=== PATIENT | male | born 2000 | race Two or more races ===

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

== ENCOUNTER 2022-03-10 21:11 | Emergency (ER) | payer MEDICAID, SELFPAY ==
--- NOTE | 2022-03-10 21:14 | ECG_ITS ---
Test Reason : CHEST PAIN Blood Pressure : / mmHG Vent. Rate : 118 BPM Atrial Rate : 118 BPM P-R Int : 182 ms QRS Dur : 086 ms QT Int : 306 ms P-R-T Axes : 049 071 023 degrees QTc Int : 428 ms Sinus tachycardia Nonspecific ST abnormality Abnormal ECG When compared with ECG of 13-OCT-2021 02:29, Nonspecific T wave abnormality now evident in Inferior leads Lateral leads Referred By: Generic ED Physician Electronically Signed By:AMANDEEP GALINDO MD
[2022-03-10 21:15] VITALS: BP 127/66; PULSE 129; RESP 17; TEMP 36.2; O2SAT 100; BMI 19.6
[2022-03-10 21:31] LABS: MANUAL DIFF FLAG NO
[2022-03-10 21:32] LABS: Basophils Percent Auto 0.2 % (0-2); Eosinophils Absolute Auto 0.1 X10*3/uL (0.0-0.4); Eosinophils Percent Auto 0.8 % (0-4); Hematocrit 35.2 % (42.0-52.0); Imm Gran Abs Auto 0.02 X10*3/uL (0.00-0.03); Imm Gran Pct Auto 0.3 % (0.0-0.4); Lymphocytes Absolute Auto 0.7 X10*3/uL (1.2-4.9); Lymphocytes Percent Auto 11.4 % (20-40); Mean Corpuscular HGB Conc 34.1 g/dl (31.0-36.0); Mean Corpuscular Hemoglobin 31.7 pg (27.0-33.0); Mean Corpuscular Volume 93.1 fL (80.0-98.0); Mean Platelet Volume 8.3 fL (9.4-12.4); Monocytes Absolute Auto 0.5 X10*3/uL (0.1-1.2); Monocytes Percent Auto 7.6 % (2-11); Neutrophils Percent Auto 79.7 % (45-73); Platelet Count 354 X10*3/uL (160-400); Red Blood Count 3.78 X10*6/uL (4.60-5.80); Red Cell Distribution Width 11.4 % (11.0-16.0); White Blood Count 6.3 X10*3/uL (4.8-10.8)
[2022-03-10 21:55] LABS: Troponin-I High Sensitivity < 3.5 ng/L (<3.5-35.0)
[2022-03-10 21:59] LABS: Alanine Aminotransferase 28 U/L (0-40); Albumin Level 4.2 g/dL (3.5-5.0); Alkaline Phosphatase 106 U/L (39-117); Anion Gap 21 (12-20); Aspartate Amino Transferase 20 U/L (5-37); Bilirubin Total 0.7 mg/dL (0.0-1.0); Blood Urea Nitrogen 9 mg/dL (9-16); Calcium 9.3 mg/dL (8.4-10.2); Carbon Dioxide 20 mmol/L (22-29); Chloride 100 mmol/L (96-108); Creatinine Clr Calc Pharmacy 141.7; Estimated Glomerular Filt Rate > 60; Glucose Random 86 mg/dL (60-115); Potassium 3.8 mmol/L (3.3-5.1); Sodium 137 mmol/L (135-145); Total Protein 8.4 g/dL (6.5-8.0)
[2022-03-10 22:31] LABS: Influenza A PCR NEGATIVE (Negative); Influenza B PCR NEGATIVE (Negative); Resp Syncy Virus RNA Qual PCR NEGATIVE (Negative); SARS COV2 PCR INHOUSE NEGATIVE (Negative)
== END 2022-03-11 00:53 | disposition left against medical advice (07) ==
PROVIDERS: Emergency Provider Emergency Medicine
DX: R07.89 Other chest pain (principal); Z79.899 Other long term (current) drug therapy; Z20.822 Contact with and (suspected) exposure to COVID-19
CPT/HCPCS: 0241U; 36415; 80053; 83735; 84484; 85025; 93005; 99283

== ENCOUNTER 2022-05-18 18:51 | Emergency (ER) | payer MEDICAID, SELFPAY ==
--- NOTE | ~2022-05-18 | CT_ITS ---
EXAMINATION: CT ANGIOGRAM OF THE CHEST WITH AND WITHOUT CONTRAST (CT PULMONARY ANGIOGRAM FOR PE) CLINICAL INFORMATION: Reason for Exam Hodgkin's lymphoma with shortness of breath COMPARISON: 07/04/2021. Chest radiograph from today. TECHNIQUE: Prior to contrast administration, noncontrast localization images were obtained. Subsequently, multidetector volumetric imaging was performed from the thoracic inlet to below the diaphragms following the administration of 65 mL Omnipaque 350 intravenous contrast. No contrast reaction reported Sagittal, coronal, and MIP oblique sagittal reformatted images were obtained on the CT workstation, uploaded to PACS, and reviewed. This CT examination was performed using dose optimization techniques as appropriate, variously including the following: *Automated exposure control *Adjustment of mA and/or kV according to patient size (this includes techniques or standardized protocols for targeted exams where dose is matched to indication/reason for exam; i.e. extremities or head) *Use of iterative reconstruction technique Total exam dose-length product 239 mGy-cm FINDINGS: QUALITY OF STUDY/CONTRAST BOLUS: Satisfactory. PULMONARY ARTERIES: No central or segmental pulmonary emboli. THORACIC AORTA: No aneurysm or dissection. LUNG: Central airways are patent. Minimal nodularity noted in the right mainstem bronchus. Large left pleural effusion. Significant compressive atelectasis involving the left lower lobe and a portion of the left upper lobe. There is nodularity along the left cardiac apex measuring 5.7 x 4 cm. Additional soft tissue density along the right superior mediastinum with multiple adjacent pulmonary nodules. For instance there is a right upper lobe 1.7 cm nodule on series 8 image 129. These nodules are new from prior. Irregular soft tissue density in the right middle lobe along the external margin as well . No pneumothorax. MEDIASTINUM: Normal heart size. No definite pericardial effusion. Extensive mediastinal lymphadenopathy. Bilateral hilar and peribronchial lymphadenopathy. For instance there is a left hilar 1.8 cm lymph node, series 6 image 21. The lymphadenopathy is increased from prior. Increased lymphadenopathy in the epicardial fat. For instance 1.1 cm short axis node on series 6 image 49. Bulky adenopathy along the course of the descending aorta. No evidence of septal bowing or right heart strain. CORONARY ARTERY CALCIFICATION: None visualized on this study. CHEST WALL/AXILLA: No axillary or internal mammary lymphadenopathy. OSSEOUS STRUCTURES: No acute or suspicious osseous abnormality. UPPER ABDOMEN: Rounded nodes in the upper abdomen seen in the left upper quadrant. These are increased from prior. No reflux of contrast into the hepatic veins to suggest elevated right heart pressures. CT/CT angio chest PE protocol IMPRESSION: 1. No pulmonary embolism. 2. Large left pleural effusion with significant compressive atelectasis of the left lung. 3. Extensive mediastinal, hilar, and upper abdominal lymphadenopathy, increased from prior. 4. Multiple pulmonary nodules are seen, new from prior. This is concerning for metastatic disease. VTE: negative
--- NOTE | ~2022-05-18 | XR_ITS ---
EXAMINATION: XR CHEST CLINICAL INFORMATION: Cough, shortness of breath. History of lymphoma on chemotherapy. COMPARISON: Chest x-ray 10/13/2021. CT chest 07/04/2021 TECHNIQUE: 2 views of the chest were obtained. FINDINGS: Dense consolidation of the mid lower left lung. New since prior study. Haziness in the peripheral left hemithorax probably due to pleural effusion as well. No midline shift. The right lung is normally aerated. No right-sided pleural effusion. Redemonstration of the widened superior mediastinum similar prior CT and chest x-ray. XR/XR chest 2V IMPRESSION: Dense consolidation of the mid and lower left lung. Probable left pleural effusion as well. CT chest would be helpful for further assessment.
--- NOTE | 2022-05-18 19:27 | ED_ITS ---
HPI - URI/Sore Throat General Chief Complaint: Dyspnea <Ioana Gao CNP - Last Filed: 05/18/22 19:49> Stated Complaint: sob,coughing,dark urine <Ioana Gao CNP - Last Filed: 05/18/22 19:49> Time Seen by Provider: 05/18/22 20:32 <Ioana Gao CNP - Last Filed: 05/18/22 19:49> Source: patient <Souleymane Ron MD - Last Filed: 05/19/22 01:35> Mode of arrival: ambulatory <Souleymane Ron MD - Last Filed: 05/19/22 01:35> Limitations: no limitations <Souleymane Ron MD - Last Filed: 05/19/22 01:35> History of Present Illness HPI Narrative: Patient history of Hodgkin's lymphoma seen at [facility] in 2020 received chemotherapy and radiation treatment was in remission lost follow-up do not see any oncologist in 2021 now comes here for cough and shortness of breath for last week with night sweats cough is mostly dry feel short of breath whenever he does any activities, feels same as when he was diagnosed with mediastinal mass in 10/16 . patient also complaining of dysuria and dark color urine for 1 week no abdominal pain no nausea no vomiting or diarrhea <Souleymane Ron MD - Last Filed: 05/19/22 01:35> Related Data Home Medications: Home Medications Medication Instructions Recorded Confirmed albuterol sulfate 90 mcg/actuation 2 puff inhalation QID PRN wheezing 10/30/20 10/30/20 aerosol inhaler (ProAir HFA) ondansetron HCl 8 mg tablet 1 tab PO Q8H PRN nausea/vomiting 10/30/20 10/30/20 quetiapine 25 mg tablet 2 tab PO BEDTIME 10/30/20 10/30/20 scopolamine base 1 mg over 3 days 1 patch topical Q3D PRN 10/30/20 10/30/20 transdermal patch (Transderm-Scop) nausea/vomiting sulfamethoxazole 800 1 tab PO BID 10/30/20 10/30/20 mg-trimethoprim 160 mg tablet <Ioana Gao CNP - Last Filed: 05/18/22 19:49> Allergies/Adverse Reactions: Allergies Allergy/AdvReac Type Severity Reaction Status Date / Time No Known Allergies Allergy Verified 05/18/22 19:46 <Ioana Gao CNP - Last Filed: 05/18/22 19:49> Review of Systems Review of Systems: Yes all other systems are reviewed and are negative <Souleymane Ron MD - Last Filed: 05/19/22 01:35> [facility] Past Medical History Medical History: Medical History ADD (attention deficit disorder) Anxiety Depression <Ioana Gao CNP - Last Filed: 05/18/22 19:49> Family History Family History: Family History Maternal Grandfather Colon cancer Maternal Uncle Bone cancer Maternal Aunt Breast cancer Father Stroke Maternal Grandfather Pulmonary emboli Maternal Grandmother HTN (hypertension) Mother COPD (chronic obstructive pulmonary disease) <Ioana Gao CNP - Last Filed: 05/18/22 19:49> Social History Social History: Social History Alcohol intake: current Alcohol intake frequency: holidays/special occasions only Alcohol type: beer Patient Tobacco Use Status: Former Tobacco user Years Smoked: 1 Smoked in Last 30 Days: Yes Use of substances other than those prescribed or required for medical reasons: No Substance Use Type: Marijuana Advance Directives: No Advance Directives Information Provided: No <Ioana Gao CNP - Last Filed: 05/18/22 19:49> Physical Exam Vital Signs: Vital Signs: Last Vital Signs Temp 100.7 F H 05/19/22 01:41 Pulse 115 H 05/19/22 01:41 Resp 22 H 05/19/22 01:41 BP 105/52 L 05/19/22 01:41 Pulse Ox 95 05/19/22 01:41 O2 Del Method 05/19/22 01:41 BMI result Body Mass Index 16.2 <Ioana Gao CNP - Last Filed: 05/18/22 19:49> Vital Signs: Last Vital Signs Temp 100.7 F H 05/19/22 01:41 Pulse 115 H 05/19/22 01:41 Resp 22 H 05/19/22 01:41 BP 105/52 L 05/19/22 01:41 Pulse Ox 95 05/19/22 01:41 O2 Del Method 05/19/22 01:41 BMI result Body Mass Index 16.2 <Souleymane Ron MD - Last Filed: 05/19/22 01:35> Vital Signs: Last Vital Signs Temp 100.7 F H 05/19/22 01:41 Pulse 115 H 05/19/22 01:41 Resp 22 H 05/19/22 01:41 BP 105/52 L 05/19/22 01:41 Pulse Ox 95 05/19/22 01:41 O2 Del Method 05/19/22 01:41 BMI result Body Mass Index 16.2 <Darrius Calvert MD - Last Filed: 05/19/22 02:00> Appearance: Alert. Oriented X3. No acute distress. Coughing frequently Eyes: Pale+ ENT: Pharynx normal. Oral Mucosa moist Neck: Normal inspection. Neck supple. CVS: Sinus tachycardia no murmur/rub or gallop Pulses normal. Respiratory: Mild respiratory distress. Equal air entry bilateral, bilateral conducted sounds dullness at the bases Abdomen: Soft and nontender. Bowel sounds are present, no mass palpable, no CVA tenderness Skin: Skin warm and dry. Pallor+. Normal skin turgor. Extremities: No lower extremity edema. No calf tenderness Neuro: Oriented X 3. No motor deficit. No sensory deficit.No cerebellar signs , cranial nerves II-XII intact <Souleymane Ron MD - Last Filed: 05/19/22 01:35> Course Course Course Narrative: This is an RME: Additional HPI, ROS, PE not included below will be deferred to primary provider. Patient is a 21-year-old male presents emergency department for evaluation of dizziness, productive cough, chest pain with coughing, left lower abdominal pain, dysuria, dark colored urine, nausea. Symptom onset 2 weeks ago, but progressively worsening. Today symptoms are the worst. Also states he has been experiencing diarrhea for a couple of months, every day, reports bright green stools, has not been seen for this previously. Also endorsing a 25 lb weight loss over the 2-3 weeks. Fever once last week. Endorsing night sweats. Reports history of Hodgkin's lymphoma, for which he was treated summer 2020 through [facility], received chemo and radiation. Has not had any follow-up. Denies any sick contacts. States he has been vaccinated for COVID-19, not influenza. Plan: labs, urinalysis, viral testing, CXR <Ioana Gao CNP - Last Filed: 05/18/22 19:49> Medications Administered Discontinued Medications Generic Name Dose Route Start Last Admin Trade Name Freq PRN Reason Stop Dose Admin Acetaminophen 650 mg 05/19/22 00:26 05/19/22 00:32 Acetaminophen 325 Mg Tablet PO 05/19/22 00:27 650 mg ONCE ONE Administration Ceftriaxone Sodium 1 gm/ 50 mls @ 100 mls/hr 05/18/22 21:11 05/19/22 00:21 Sodium Chloride IV 05/18/22 21:40 Infused ONCE ONE Infusion Sodium Chloride 1,000 mls @ 999 mls/hr 05/18/22 22:53 05/19/22 00:21 Ns IV 05/18/22 23:53 999 mls/hr .Q1H1M ONE Administration Iohexol 100 ml 05/18/22 23:02 05/18/22 23:03 Iohexol 350 Mg/Ml 100 Ml Infus..Btl IV 05/18/22 23:03 65 ml ONCE ONE Administration Morphine Sulfate 4 mg 05/19/22 00:26 05/19/22 00:32 Morphine Sulfate 4 Mg/Ml Cartridge IVPUSH 05/19/22 00:27 4 mg ONCE ONE Administration Protocol Ondansetron HCl 4 mg 05/19/22 00:26 05/19/22 00:32 Ondansetron Hcl 4 Mg/2 Ml Vial IVPUSH 05/19/22 00:27 4 mg ONCE ONE Administration <Ioana Gao CNP - Last Filed: 05/18/22 19:49> Medications Administered Discontinued Medications Generic Name Dose Route Start Last Admin Trade Name Freq PRN Reason Stop Dose Admin Acetaminophen 650 mg 05/19/22 00:26 05/19/22 00:32 Acetaminophen 325 Mg Tablet PO 05/19/22 00:27 650 mg ONCE ONE Administration Ceftriaxone Sodium 1 gm/ 50 mls @ 100 mls/hr 05/18/22 21:11 05/19/22 00:21 Sodium Chloride IV 05/18/22 21:40 Infused ONCE ONE Infusion Sodium Chloride 1,000 mls @ 999 mls/hr 05/18/22 22:53 05/19/22 00:21 Ns IV 05/18/22 23:53 999 mls/hr .Q1H1M ONE Administration Iohexol 100 ml 05/18/22 23:02 05/18/22 23:03 Iohexol 350 Mg/Ml 100 Ml Infus..Btl IV 05/18/22 23:03 65 ml ONCE ONE Administration Morphine Sulfate 4 mg 05/19/22 00:26 05/19/22 00:32 Morphine Sulfate 4 Mg/Ml Cartridge IVPUSH 05/19/22 00:27 4 mg ONCE ONE Administration Protocol Ondansetron HCl 4 mg 05/19/22 00:26 05/19/22 00:32 Ondansetron Hcl 4 Mg/2 Ml Vial IVPUSH 05/19/22 00:27 4 mg ONCE ONE Administration <Souleymane Ron MD - Last Filed: 05/19/22 01:35> Medications Administered Discontinued Medications Generic Name Dose Route Start Last Admin Trade Name Freq PRN Reason Stop Dose Admin Acetaminophen 650 mg 05/19/22 00:26 05/19/22 00:32 Acetaminophen 325 Mg Tablet PO 05/19/22 00:27 650 mg ONCE ONE Administration Ceftriaxone Sodium 1 gm/ 50 mls @ 100 mls/hr 05/18/22 21:11 05/19/22 00:21 Sodium Chloride IV 05/18/22 21:40 Infused ONCE ONE Infusion Sodium Chloride 1,000 mls @ 999 mls/hr 05/18/22 22:53 05/19/22 00:21 Ns IV 05/18/22 23:53 999 mls/hr .Q1H1M ONE Administration Iohexol 100 ml 05/18/22 23:02 05/18/22 23:03 Iohexol 350 Mg/Ml 100 Ml Infus..Btl IV 05/18/22 23:03 65 ml ONCE ONE Administration Morphine Sulfate 4 mg 05/19/22 00:26 05/19/22 00:32 Morphine Sulfate 4 Mg/Ml Cartridge IVPUSH 05/19/22 00:27 4 mg ONCE ONE Administration Protocol Ondansetron HCl 4 mg 05/19/22 00:26 05/19/22 00:32 Ondansetron Hcl 4 Mg/2 Ml Vial IVPUSH 05/19/22 00:27 4 mg ONCE ONE Administration <Darrius Calvert MD - Last Filed: 05/19/22 02:00> Medical Decision Making Medical Decision Making [facility] Narrative: Patient with Hodgkin's lymphoma comes here for cough congestion workup showed recurrence of the lymphoma with left-sided pleural effusion multiple lung nodules and lymph nodes in mediastinum and abdomen patient been followed by [facility] he lost follow-up for last 1 year will transfer the patient to [facility] case discussed with resident at [facility] Dr Jacome, awaiting for accepting physicaian <Souleymane Ron MD - Last Filed: 05/19/22 01:35> Patient with Hodgkin's lymphoma comes here for cough congestion workup showed recurrence of the lymphoma with left-sided pleural effusion multiple lung nodules and lymph nodes in mediastinum and abdomen patient been followed by [facility] he lost follow-up for last 1 year will transfer the patient to [facility] case discussed with resident at [facility] Dr Jacome, awaiting for accepting physicaian [id number]: [facility] transfer line contacted the emergency department and informed me that the patient needs to go to [facility] as an ED to ED transfer. I did discuss the patient's presentation and findings with emergency department attending physician, Dr. Cheng and she accepted the patient. The patient was treated with ceftriaxone 1 g IV and I did order Zithromax 500 mg orally. Patient will be transferred as an ED to ED transfer by [facility] ambulance. <Darrius Calvert MD - Last Filed: 05/19/22 02:00> Lab Data [facility] Lab Attestation statement: I reviewed the patient's lab results. <Souleymane Ron MD - Last Jesus ed: 05/19/22 01:35> Result Diagrams: 05/18/22 20:08 05/18/22 20:08 <Ioana Gao CNP - Last Filed: 05/18/22 19:49> Labs: Lab Results 05/18/22 05/18/22 05/18/22 Range/Units 20:08 20:09 20:10 WBC (4.8-10.8) X10*3/uL RBC (4.60-5.80) X10*6/uL Hgb (14.0-18.0) g/dl Hct (42.0-52.0) % MCV (80.0-98.0) fL MCH (27.0-33.0) pg MCHC (31.0-36.0) g/dl RDW (11.0-16.0) % Plt Count (160-400) X10*3/uL MPV (9.4-12.4) fL Immature Gran % (Auto) (0.0-0.4) % Neut % (Auto) (45-73) % Lymph % (Auto) (20-40) % [place] % (Auto) (2-11) % Eos % (Auto) (0-4) % Baso % (Auto) (0-2) % Lymph # (Auto) (1.2-4.9) X10*3/uL [place] # (Auto) (0.1-1.2) X10*3/uL Eos # (Auto) (0.0-0.4) X10*3/uL Baso # (Auto) (0.0-0.2) X10*3/uL Abs Immat Gran (auto) (0.00-0.03) X10*3/uL Absolute Neuts (auto) (2.0-8.3) x10*3/uL Absolute Nucleated RBC (0.0-0.012) X10*3/uL Nucleated RBC % (auto) (0.0-0.2) /100WBC Sodium 133 L (135-145) mmol/L Potassium 3.5 (3.3-5.1) mmol/L Chloride 97 (96-108) mmol/L Carbon Dioxide 24 (22-29) mmol/L Anion Gap 16 (12-20) BUN 8 L (9-16) mg/dL Creatinine 0.76 (0.5-1.4) mg/dL Estim Creat Clear Calc 120.3 Estimated GFR > 60 Random Glucose 118 H (60-115) mg/dL Lactic Acid (0.5-2.0) mmol/L Lactic Acid F/U @ 2Hr (0.5-2.0) mmol/L Calcium 8.1 L D (8.4-10.2) mg/dL Total Bilirubin 0.9 (0.0-1.0) mg/dL AST 25 (5-37) U/L ALT 22 (0-40) U/L Alkaline Phosphatase 126 H (39-117) U/L Total Protein 6.6 (6.5-8.0) g/dL Albumin 3.2 L (3.5-5.0) g/dL Lipase 9 (8-78) U/L Urine Color Urine Appearance Urine pH (5.0-9.0) Ur Specific Bryant (1.005-1.025) Urine Protein (Neg-Trace) mg/dL Urine Glucose (UA) (Negative) mg/dL Urine Ketones (Negative) mg/dL Urine Blood (Negative) Urine Nitrite (Negative) Ur Leukocyte Esterase (Negative) Urine RBC (0-2) /HPF Urine WBC (0-5) /HPF Ur Squamous Epith Cells (0-2) /HPF Urine Bacteria (None Seen) Hyaline Casts (0-2) /LPF COVID-19 (FRANCINE) Negative (Negative) COVID-19 Clin Com See Note Influenza Type A (CAROL) Negative (Negative) Influenza Type B (CAROL) Negative (Negative) Influenza A & B Note See Note 05/18/22 05/18/22 05/18/22 Range/Units 20:45 20:45 22:02 WBC 6.6 (4.8-10.8) X10*3/uL RBC 3.19 L (4.60-5.80) X10*6/uL Hgb 8.1 L D (14.0-18.0) g/dl Hct 25.9 L D (42.0-52.0) % MCV 81.2 (80.0-98.0) fL MCH 25.4 L (27.0-33.0) pg MCHC 31.3 (31.0-36.0) g/dl RDW 16.6 H (11.0-16.0) % Plt Count 307 (160-400) X10*3/uL MPV 9.5 (9.4-12.4) fL Immature Gran % (Auto) 0.3 (0.0-0.4) % Neut % (Auto) 85.8 H (45-73) % Lymph % (Auto) 8.5 L (20-40) % [place] % (Auto) 4.7 (2-11) % Eos % (Auto) 0.5 (0-4) % Baso % (Auto) 0.2 (0-2) % Lymph # (Auto) 0.6 L (1.2-4.9) X10*3/uL [place] # (Auto) 0.3 (0.1-1.2) X10*3/uL Eos # (Auto) 0.0 (0.0-0.4) X10*3/uL Baso # (Auto) 0.0 (0.0-0.2) X10*3/uL Abs Immat Gran (auto) 0.02 (0.00-0.03) X10*3/uL Absolute Neuts (auto) 5.7 (2.0-8.3) x10*3/uL Absolute Nucleated RBC 0.000 (0.0-0.012) X10*3/uL Nucleated RBC % (auto) 0.0 (0.0-0.2) /100WBC Sodium (135-145) mmol/L Potassium (3.3-5.1) mmol/L Chloride (96-108) mmol/L Carbon Dioxide (22-29) mmol/L Anion Gap (12-20) BUN (9-16) mg/dL Creatinine (0.5-1.4) mg/dL Estim Creat Clear Calc Estimated GFR Random Glucose (60-115) mg/dL Lactic Acid 2.2 H* (0.5-2.0) mmol/L Lactic Acid F/U @ 2Hr (0.5-2.0) mmol/L Calcium (8.4-10.2) mg/dL Total Bilirubin (0.0-1.0) mg/dL AST (5-37) U/L ALT (0-40) U/L Alkaline Phosphatase (39-117) U/L Total Protein (6.5-8.0) g/dL Albumin (3.5-5.0) g/dL Lipase (8-78) U/L Urine Color Dark Yellow Urine Appearance Cloudy Urine pH 6.5 (5.0-9.0) Ur Specific [place] >= 1.030 H (1.005-1.025) Urine Protein 30 (1+) H (Neg-Trace) mg/dL Urine Glucose (UA) Negative (Negative) mg/dL Urine Ketones Trace (Negative) mg/dL Urine Blood Negative (Negative) Urine Nitrite Positive H (Negative) Ur Leukocyte Esterase Trace H (Negative) Urine RBC 0-2 (0-2) /HPF Urine WBC 0-5 (0-5) /HPF Ur Squamous Epith Cells 0-2 (0-2) /HPF Urine Bacteria None Seen (None Seen) Hyaline Casts 0-2 (0-2) /LPF COVID-19 (FRANCINE) (Negative) COVID-19 Clin Com Influenza Type A (CAROL) (Negative) Influenza Type B (CAROL) (Negative) Influenza A & B Note 05/19/22 Range/Units 00:48 WBC (4.8-10.8) X10*3/uL RBC (4.60-5.80) X10*6/uL Hgb (14.0-18.0) g/dl Hct (42.0-52.0) % MCV (80.0-98.0) fL MCH (27.0-33.0) pg MCHC (31.0-36.0) g/dl RDW (11.0-16.0) % Plt Count (160-400) X10*3/uL MPV (9.4-12.4) fL Immature Gran % (Auto) (0.0-0.4) % Neut % (Auto) (45-73) % Lymph % (Auto) (20-40) % [place] % (Auto) (2-11) % Eos % (Auto) (0-4) % Baso % (Auto) (0-2) % Lymph # (Auto) (1.2-4.9) X10*3/uL [place] # (Auto) (0.1-1.2) X10*3/uL Eos # (Auto) (0.0-0.4) X10*3/uL Baso # (Auto) (0.0-0.2) X10*3/uL Abs Immat Gran (auto) (0.00-0.03) X10*3/uL Absolute Neuts (auto) (2.0-8.3) x10*3/uL Absolute Nucleated RBC (0.0-0.012) X10*3/uL Nucleated RBC % (auto) (0.0-0.2) /100WBC Sodium (135-145) mmol/L Potassium (3.3-5.1) mmol/L Chloride (96-108) mmol/L Carbon Dioxide (22-29) mmol/L Anion Gap (12-20) BUN (9-16) mg/dL Creatinine (0.5-1.4) mg/dL Estim Creat Clear Calc Estimated GFR Random Glucose (60-115) mg/dL Lactic Acid (0.5-2.0) mmol/L Lactic Acid F/U @ 2Hr 1.4 (0.5-2.0) mmol/L Calcium (8.4-10.2) mg/dL Total Bilirubin (0.0-1.0) mg/dL AST (5-37) U/L ALT (0-40) U/L Alkaline Phosphatase (39-117) U/L Total Protein (6.5-8.0) g/dL Albumin (3.5-5.0) g/dL Lipase (8-78) U/L Urine Color Urine Appearance Urine pH (5.0-9.0) Ur Specific [place] (1.005-1.025) Urine Protein (Neg-Trace) mg/dL Urine Glucose (UA) (Negative) mg/dL Urine Ketones (Negative) mg/dL Urine Blood (Negative) Urine Nitrite (Negative) Ur Leukocyte Esterase (Negative) Urine RBC (0-2) /HPF Urine WBC (0-5) /HPF Ur Squamous Epith Cells (0-2) /HPF Urine Bacteria (None Seen) Hyaline Casts (0-2) /LPF COVID-19 (FRANCINE) (Negative) COVID-19 Clin Com Influenza Type A (CAROL) (Negative) Influenza Type B (CAROL) (Negative) Influenza A & B Note <Ioana Gao, TYESHA - Last Filed: 05/18/22 19:49> Lab Results 05/18/22 05/18/22 05/18/22 Range/Units 20:08 20:09 20:10 WBC (4.8-10.8) X10*3/uL RBC (4.60-5.80) X10*6/uL Hgb (14.0-18.0) g/dl Hct (42.0-52.0) % MCV (80.0-98.0) fL MCH (27.0-33.0) pg MCHC (31.0-36.0) g/dl RDW (11.0-16.0) % Plt Count (160-400) X10*3/uL MPV (9.4-12.4) fL Immature Gran % (Auto) (0.0-0.4) % Neut % (Auto) (45-73) % Lymph % (Auto) (20-40) % [place] % (Auto) (2-11) % Eos % (Auto) (0-4) % Baso % (Auto) (0-2) % Lymph # (Auto) (1.2-4.9) X10*3/uL [place] # (Auto) (0.1-1.2) X10*3/uL Eos # (Auto) (0.0-0.4) X10*3/uL Baso # (Auto) (0.0-0.2) X10*3/uL Abs Immat Gran (auto) (0.00-0.03) X10*3/uL Absolute Neuts (auto) (2.0-8.3) x10*3/uL Absolute Nucleated RBC (0.0-0.012) X10*3/uL Nucleated RBC % (auto) (0.0-0.2) /100WBC Sodium 133 L (135-145) mmol/L Potassium 3.5 (3.3-5.1) mmol/L Chloride 97 (96-108) mmol/L Carbon Dioxide 24 (22-29) mmol/L Anion Gap 16 (12-20) BUN 8 L (9-16) mg/dL Creatinine 0.76 (0.5-1.4) mg/dL Estim Creat Clear Calc 120.3 Estimated GFR > 60 Random Glucose 118 H (60-115) mg/dL Lactic Acid (0.5-2.0) mmol/L Lactic Acid F/U @ 2Hr (0.5-2.0) mmol/L Calcium 8.1 L D (8.4-10.2) mg/dL Total Bilirubin 0.9 (0.0-1.0) mg/dL AST 25 (5-37) U/L ALT 22 (0-40) U/L Alkaline Phosphatase 126 H (39-117) U/L Total Protein 6.6 (6.5-8.0) g/dL Albumin 3.2 L (3.5-5.0) g/dL Lipase 9 (8-78) U/L Urine Color Urine Appearance Urine pH (5.0-9.0) Ur Specific [place] (1.005-1.025) Urine Protein (Neg-Trace) mg/dL Urine Glucose (UA) (Negative) mg/dL Urine Ketones (Negative) mg/dL Urine Blood (Negative) Urine Nitrite (Negative) Ur Leukocyte Esterase (Negative) Urine RBC (0-2) /HPF Urine WBC (0-5) /HPF Ur Squamous Epith Cells (0-2) /HPF Urine Bacteria (None Seen) Hyaline Casts (0-2) /LPF COVID-19 (FRANCINE) Negative (Negative) COVID-19 Clin Com See Note Influenza Type A (CAROL) Negative (Negative) Influenza Type B (CAROL) Negative (Negative) Influenza A & B Note See Note 05/18/22 05/18/22 05/18/22 Range/Units 20:45 20:45 22:02 WBC 6.6 (4.8-10.8) X10*3/uL RBC 3.19 L (4.60-5.80) X10*6/uL Hgb 8.1 L D (14.0-18.0) g/dl Hct 25.9 L D (42.0-52.0) % MCV 81.2 (80.0-98.0) fL MCH 25.4 L (27.0-33.0) pg MCHC 31.3 (31.0-36.0) g/dl RDW 16.6 H (11.0-16.0) % Plt Count 307 (160-400) X10*3/uL MPV 9.5 (9.4-12.4) fL Immature Gran % (Auto) 0.3 (0.0-0.4) % Neut % (Auto) 85.8 H (45-73) % Lymph % (Auto) 8.5 L (20-40) % [place] % (Auto) 4.7 (2-11) % Eos % (Auto) 0.5 (0-4) % Baso % (Auto) 0.2 (0-2) % Lymph # (Auto) 0.6 L (1.2-4.9) X10*3/uL [place] # (Auto) 0.3 (0.1-1.2) X10*3/uL Eos # (Auto) 0.0 (0.0-0.4) X10*3/uL Baso # (Auto) 0.0 (0.0-0.2) X10*3/uL Abs Immat Gran (auto) 0.02 (0.00-0.03) X10*3/uL Absolute Neuts (auto) 5.7 (2.0-8.3) x10*3/uL Absolute Nucleated RBC 0.000 (0.0-0.012) X10*3/uL Nucleated RBC % (auto) 0.0 (0.0-0.2) /100WBC Sodium (135-145) mmol/L Potassium (3.3-5.1) mmol/L Chloride (96-108) mmol/L Carbon Dioxide (22-29) mmol/L Anion Gap (12-20) BUN (9-16) mg/dL Creatinine (0.5-1.4) mg/dL Estim Creat Clear Calc Estimated GFR Random Glucose (60-115) mg/dL Lactic Acid 2.2 H* (0.5-2.0) mmol/L Lactic Acid F/U @ 2Hr (0.5-2.0) mmol/L Calcium (8.4-10.2) mg/dL Total Bilirubin (0.0-1.0) mg/dL AST (5-37) U/L ALT (0-40) U/L Alkaline Phosphatase (39-117) U/L Total Protein (6.5-8.0) g/dL Albumin (3.5-5.0) g/dL Lipase (8-78) U/L Urine Color Dark Yellow Urine Appearance Cloudy Urine pH 6.5 (5.0-9.0) Ur Specific [place] >= 1.030 H (1.005-1.025) Urine Protein 30 (1+) H (Neg-Trace) mg/dL Urine Glucose (UA) Negative (Negative) mg/dL Urine Ketones Trace (Negative) mg/dL Urine Blood Negative (Negative) Urine Nitrite Positive H (Negative) Ur Leukocyte Esterase Trace H (Negative) Urine RBC 0-2 (0-2) /HPF Urine WBC 0-5 (0-5) /HPF Ur Squamous Epith Cells 0-2 (0-2) /HPF Urine Bacteria None Seen (None Seen) Hyaline Casts 0-2 (0-2) /LPF COVID-19 (FRANCINE) (Negative) COVID-19 Clin Com Influenza Type A (CAROL) (Negative) Influenza Type B (CAROL) (Negative) Influenza A & B Note 05/19/22 Range/Units 00:48 WBC (4.8-10.8) X10*3/uL RBC (4.60-5.80) X10*6/uL Hgb (14.0-18.0) g/dl Hct (42.0-52.0) % MCV (80.0-98.0) fL MCH (27.0-33.0) pg MCHC (31.0-36.0) g/dl RDW (11.0-16.0) % Plt Count (160-400) X10*3/uL MPV (9.4-12.4) fL Immature Gran % (Auto) (0.0-0.4) % Neut % (Auto) (45-73) % Lymph % (Auto) (20-40) % [place] % (Auto) (2-11) % Eos % (Auto) (0-4) % Baso % (Auto) (0-2) % Lymph # (Auto) (1.2-4.9) X10*3/uL [place] # (Auto) (0.1-1.2) X10*3/uL Eos # (Auto) (0.0-0.4) X10*3/uL Baso # (Auto) (0.0-0.2) X10*3/uL Abs Immat Gran (auto) (0.00-0.03) X10*3/uL Absolute Neuts (auto) (2.0-8.3) x10*3/uL Absolute Nucleated RBC (0.0-0.012) X10*3/uL Nucleated RBC % (auto) (0.0-0.2) /100WBC Sodium (135-145) mmol/L Potassium (3.3-5.1) mmol/L Chloride (96-108) mmol/L Carbon Dioxide (22-29) mmol/L Anion Gap (12-20) BUN (9-16) mg/dL Creatinine (0.5-1.4) mg/dL Estim Creat Clear Calc Estimated GFR Random Glucose (60-115) mg/dL Lactic Acid (0.5-2.0) mmol/L Lactic Acid F/U @ 2Hr 1.4 (0.5-2.0) mmol/L Calcium (8.4-10.2) mg/dL Total Bilirubin (0.0-1.0) mg/dL AST (5-37) U/L ALT (0-40) U/L Alkaline Phosphatase (39-117) U/L Total Protein (6.5-8.0) g/dL Albumin (3.5-5.0) g/dL Lipase (8-78) U/L Urine Color Urine Appearance Urine pH (5.0-9.0) Ur Specific [place] (1.005-1.025) Urine Protein (Neg-Trace) mg/dL Urine Glucose (UA) (Negative) mg/dL Urine Ketones (Negative) mg/dL Urine Blood (Negative) Urine Nitrite (Negative) Ur Leukocyte Esterase (Negative) Urine RBC (0-2) /HPF Urine WBC (0-5) /HPF Ur Squamous Epith Cells (0-2) /HPF Urine Bacteria (None Seen) Hyaline Casts (0-2) /LPF COVID-19 (FRANCINE) (Negative) COVID-19 Clin Com Influenza Type A (CAROL) (Negative) Influenza Type B (CAROL) (Negative) Influenza A & B Note <Souleymane Ron MD - Last Filed: 05/19/22 01:35> Lab Results 05/18/22 05/18/22 05/18/22 Range/Units 20:08 20:09 20:10 WBC (4.8-10.8) X10*3/uL RBC (4.60-5.80) X10*6/uL Hgb (14.0-18.0) g/dl Hct (42.0-52.0) % MCV (80.0-98.0) fL MCH (27.0-33.0) pg MCHC (31.0-36.0) g/dl RDW (11.0-16.0) % Plt Count (160-400) X10*3/uL MPV (9.4-12.4) fL Immature Gran % (Auto) (0.0-0.4) % Neut % (Auto) (45-73) % Lymph % (Auto) (20-40) % [place] % (Auto) (2-11) % Eos % (Auto) (0-4) % Baso % (Auto) (0-2) % Lymph # (Auto) (1.2-4.9) X10*3/uL [place] # (Auto) (0.1-1.2) X10*3/uL Eos # (Auto) (0.0-0.4) X10*3/uL Baso # (Auto) (0.0-0.2) X10*3/uL Abs Immat Gran (auto) (0.00-0.03) X10*3/uL Absolute Neuts (auto) (2.0-8.3) x10*3/uL Absolute Nucleated RBC (0.0-0.012) X10*3/uL Nucleated RBC % (auto) (0.0-0.2) /100WBC Sodium 133 L (135-145) mmol/L Potassium 3.5 (3.3-5.1) mmol/L Chloride 97 (96-108) mmol/L Carbon Dioxide 24 (22-29) mmol/L Anion Gap 16 (12-20) BUN 8 L (9-16) mg/dL Creatinine 0.76 (0.5-1.4) mg/dL Estim Creat Clear Calc 120.3 Estimated GFR > 60 Random Glucose 118 H (60-115) mg/dL Lactic Acid (0.5-2.0) mmol/L Lactic Acid F/U @ 2Hr (0.5-2.0) mmol/L Calcium 8.1 L D (8.4-10.2) mg/dL Total Bilirubin 0.9 (0.0-1.0) mg/dL AST 25 (5-37) U/L ALT 22 (0-40) U/L Alkaline Phosphatase 126 H (39-117) U/L Total Protein 6.6 (6.5-8.0) g/dL Albumin 3.2 L (3.5-5.0) g/dL Lipase 9 (8-78) U/L Urine Color Urine Appearance Urine pH (5.0-9.0) Ur Specific [place] (1.005-1.025) Urine Protein (Neg-Trace) mg/dL Urine Glucose (UA) (Negative) mg/dL Urine Ketones (Negative) mg/dL Urine Blood (Negative) Urine Nitrite (Negative) Ur Leukocyte Esterase (Negative) Urine RBC (0-2) /HPF Urine WBC (0-5) /HPF Ur Squamous Epith Cells (0-2) /HPF Urine Bacteria (None Seen) Hyaline Casts (0-2) /LPF COVID-19 (FRANCINE) Negative (Negative) COVID-19 Clin Com See Note Influenza Type A (CAROL) Negative (Negative) Influenza Type B (CAROL) Negative (Negative) Influenza A & B Note See Note 05/18/22 05/18/22 05/18/22 Range/Units 20:45 20:45 22:02 WBC 6.6 (4.8-10.8) X10*3/uL RBC 3.19 L (4.60-5.80) X10*6/uL Hgb 8.1 L D (14.0-18.0) g/dl Hct 25.9 L D (42.0-52.0) % MCV 81.2 (80.0-98.0) fL MCH 25.4 L (27.0-33.0) pg MCHC 31.3 (31.0-36.0) g/dl RDW 16.6 H (11.0-16.0) % Plt Count 307 (160-400) X10*3/uL MPV 9.5 (9.4-12.4) fL Immature Gran % (Auto) 0.3 (0.0-0.4) % Neut % (Auto) 85.8 H (45-73) % Lymph % (Auto) 8.5 L (20-40) % [place] % (Auto) 4.7 (2-11) % Eos % (Auto) 0.5 (0-4) % Baso % (Auto) 0.2 (0-2) % Lymph # (Auto) 0.6 L (1.2-4.9) X10*3/uL [place] # (Auto) 0.3 (0.1-1.2) X10*3/uL Eos # (Auto) 0.0 (0.0-0.4) X10*3/uL Baso # (Auto) 0.0 (0.0-0.2) X10*3/uL Abs Immat Gran (auto) 0.02 (0.00-0.03) X10*3/uL Absolute Neuts (auto) 5.7 (2.0-8.3) x10*3/uL Absolute Nucleated RBC 0.000 (0.0-0.012) X10*3/uL Nucleated RBC % (auto) 0.0 (0.0-0.2) /100WBC Sodium (135-145) mmol/L Potassium (3.3-5.1) mmol/L Chloride (96-108) mmol/L Carbon Dioxide (22-29) mmol/L Anion Gap (12-20) BUN (9-16) mg/dL Creatinine (0.5-1.4) mg/dL Estim Creat Clear Calc Estimated GFR Random Glucose (60-115) mg/dL Lactic Acid 2.2 H* (0.5-2.0) mmol/L Lactic Acid F/U @ 2Hr (0.5-2.0) mmol/L Calcium (8.4-10.2) mg/dL Total Bilirubin (0.0-1.0) mg/dL AST (5-37) U/L ALT (0-40) U/L Alkaline Phosphatase (39-117) U/L Total Protein (6.5-8.0) g/dL Albumin (3.5-5.0) g/dL Lipase (8-78) U/L Urine Color Dark Yellow Urine Appearance Cloudy Urine pH 6.5 (5.0-9.0) Ur Specific Bryant >= 1.030 H (1.005-1.025) Urine Protein 30 (1+) H (Neg-Trace) mg/dL Urine Glucose (UA) Negative (Negative) mg/dL Urine Ketones Trace (Negative) mg/dL Urine Blood Negative (Negative) Urine Nitrite Positive H (Negative) Ur Leukocyte Esterase Trace H (Negative) Urine RBC 0-2 (0-2) /HPF Urine WBC 0-5 (0-5) /HPF Ur Squamous Epith Cells 0-2 (0-2) /HPF Urine Bacteria None Seen (None Seen) Hyaline Casts 0-2 (0-2) /LPF COVID-19 (FRANCINE) (Negative) COVID-19 Clin Com Influenza Type A (CAROL) (Negative) Influenza Type B (CAROL) (Negative) Influenza A & B Note 05/19/22 Range/Units 00:48 WBC (4.8-10.8) X10*3/uL RBC (4.60-5.80) X10*6/uL Hgb (14.0-18.0) g/dl Hct (42.0-52.0) % MCV (80.0-98.0) fL MCH (27.0-33.0) pg MCHC (31.0-36.0) g/dl RDW (11.0-16.0) % Plt Count (160-400) X10*3/uL MPV (9.4-12.4) fL Immature Gran % (Auto) (0.0-0.4) % Neut % (Auto) (45-73) % Lymph % (Auto) (20-40) % [place] % (Auto) (2-11) % Eos % (Auto) (0-4) % Baso % (Auto) (0-2) % Lymph # (Auto) (1.2-4.9) X10*3/uL [place] # (Auto) (0.1-1.2) X10*3/uL Eos # (Auto) (0.0-0.4) X10*3/uL Baso # (Auto) (0.0-0.2) X10*3/uL Abs Immat Gran (auto) (0.00-0.03) X10*3/uL Absolute Neuts (auto) (2.0-8.3) x10*3/uL Absolute Nucleated RBC (0.0-0.012) X10*3/uL Nucleated RBC % (auto) (0.0-0.2) /100WBC Sodium (135-145) mmol/L Potassium (3.3-5.1) mmol/L Chloride (96-108) mmol/L Carbon Dioxide (22-29) mmol/L Anion Gap (12-20) BUN (9-16) mg/dL Creatinine (0.5-1.4) mg/dL Estim Creat Clear Calc Estimated GFR Random Glucose (60-115) mg/dL Lactic Acid (0.5-2.0) mmol/L Lactic Acid F/U @ 2Hr 1.4 (0.5-2.0) mmol/L Calcium (8.4-10.2) mg/dL Total Bilirubin (0.0-1.0) mg/dL AST (5-37) U/L ALT (0-40) U/L Alkaline Phosphatase (39-117) U/L Total Protein (6.5-8.0) g/dL Albumin (3.5-5.0) g/dL Lipase (8-78) U/L Urine Color Urine Appearance Urine pH (5.0-9.0) Ur Specific Bryant (1.005-1.025) Urine Protein (Neg-Trace) mg/dL Urine Glucose (UA) (Negative) mg/dL Urine Ketones (Negative) mg/dL Urine Blood (Negative) Urine Nitrite (Negative) Ur Leukocyte Esterase (Negative) Urine RBC (0-2) /HPF Urine WBC (0-5) /HPF Ur Squamous Epith Cells (0-2) /HPF Urine Bacteria (None Seen) Hyaline Casts (0-2) /LPF COVID-19 (FRANCINE) (Negative) COVID-19 Clin Com Influenza Type A (CAROL) (Negative) Influenza Type B (CAROL) (Negative) Influenza A & B Note <Darrius Calvert MD - Last Filed: 05/19/22 02:00> Independent Interpretation I performed an independent interpretation of an: EKG <Souleymane Ron MD - Last Filed: 05/19/22 01:35> Interpretation: Sinus tachycardia with heart rate 117 beats per minute normal interval no rmal axis no acute ST changes no acute ischemia <Souleymane Ron MD - Last Filed: 05/19/22 01:35> Radiology Impression Discussion of test interpretation with radiology: I have reviewed the radiologist's reading. <Souleymane Ron MD - Last Filed: 05/19/22 01:35> Radiologist Impression: CT/CT angio chest PE protocol IMPRESSION: 1.? No pulmonary embolism. 2.? Large left pleural effusion with significant compressive atelectasis of the left lung. 3.? Extensive mediastinal, hilar, and upper abdominal lymphadenopathy, increased from prior. 4.? Multiple pulmonary nodules are seen, new from prior. This is concerning for metastatic disease. <Souleymane Ron MD - Last Filed: 05/19/22 01:35> Discharge Plan Discharge Clinical Impression: HD (Hodgkin's lymphoma), Pleural effusion, Pneumonia <Ioana Gao CNP - Last Filed: 05/18/22 19:49> Patient Disposition: [facility] <Ioana Gao CNP - Last Filed: 05/18/22 19:49> Transfer Details: [facility] <Ioana Gao CNP - Last Filed: 05/18/22 19:49> [facility] <Souleymane Ron MD - Last Filed: 05/19/22 01:35> [facility] <Darrius Calvert MD - Last Filed: 05/19/22 02:00> Prescriptions: No Action quetiapine 25 mg tablet 2 tab PO BEDTIME ondansetron HCl 8 mg tablet 1 tab PO Q8H PRN (Reason: nausea/vomiting) sulfamethoxazole-trimethoprim 800-160 mg tablet 1 tab PO BID scopolamine base [Transderm-Scop] 1 mg over 3 days patch 3 day 1 patch topical Q3D PRN (Reason: nausea/vomiting) albuterol sulfate [ProAir HFA] 90 mcg/actuation HFA aerosol inhaler 2 puff inhalation QID PRN (Reason: wheezing) <Ioana Gao CNP - Last Filed: 05/18/22 19:49>
[2022-05-18 19:46] VITALS: BP 101/66; PULSE 129; RESP 18; TEMP 37.2; O2SAT 94; BMI 16.2
--- NOTE | 2022-05-18 19:47 | ECG_ITS ---
Test Reason : SOB Blood Pressure : / mmHG Vent. Rate : 117 BPM Atrial Rate : 117 BPM P-R Int : 150 ms QRS Dur : 074 ms QT Int : 298 ms P-R-T Axes : 046 032 044 degrees QTc Int : 415 ms Sinus tachycardia Nonspecific T wave abnormality Abnormal ECG When compared with ECG of 10-MAR-2022 21:16, Nonspecific T wave abnormality now evident in Anterior leads Referred By: Ioana Gao Electronically Signed By:LUIS ARMANDO YADAV MD
[2022-05-18 20:31] LABS: Alanine Aminotransferase 22 U/L (0-40); Albumin Level 3.2 g/dL (3.5-5.0); Alkaline Phosphatase 126 U/L (39-117); Anion Gap 16 (12-20); Aspartate Amino Transferase 25 U/L (5-37); Bilirubin Total 0.9 mg/dL (0.0-1.0); Blood Urea Nitrogen 8 mg/dL (9-16); Calcium 8.1 mg/dL (8.4-10.2); Carbon Dioxide 24 mmol/L (22-29); Chloride 97 mmol/L (96-108); Creatinine Clr Calc Pharmacy 120.3; Estimated Glomerular Filt Rate > 60; Glucose Random 118 mg/dL (60-115); Lipase 9 U/L (8-78); Potassium 3.5 mmol/L (3.3-5.1); Sodium 133 mmol/L (135-145); Total Protein 6.6 g/dL (6.5-8.0)
[2022-05-18 20:35] LABS: IDNOW Serial# BCCEAD1C; Influenza A Negative (Negative); Influenza B2 Negative (Negative)
[2022-05-18 20:35] LABS: COVID-19 Test Negative (Negative); IDNOW Serial# 16C4AD1C
[2022-05-18 20:52] LABS: Basophils Percent Auto 0.2 % (0-2); Eosinophils Percent Auto 0.5 % (0-4); Hematocrit 25.9 % (42.0-52.0); Hemoglobin 8.1 g/dl (14.0-18.0); Imm Gran Abs Auto 0.02 X10*3/uL (0.00-0.03); Imm Gran Pct Auto 0.3 % (0.0-0.4); Lymphocytes Absolute Auto 0.6 X10*3/uL (1.2-4.9); Lymphocytes Percent Auto 8.5 % (20-40); Mean Corpuscular HGB Conc 31.3 g/dl (31.0-36.0); Mean Corpuscular Hemoglobin 25.4 pg (27.0-33.0); Mean Corpuscular Volume 81.2 fL (80.0-98.0); Mean Platelet Volume 9.5 fL (9.4-12.4); Monocytes Absolute Auto 0.3 X10*3/uL (0.1-1.2); Monocytes Percent Auto 4.7 % (2-11); Neutrophils Absolute Auto 5.7 x10*3/uL (2.0-8.3); Neutrophils Percent Auto 85.8 % (45-73); Platelet Count 307 X10*3/uL (160-400); Red Blood Count 3.19 X10*6/uL (4.60-5.80); Red Cell Distribution Width 16.6 % (11.0-16.0); White Blood Count 6.6 X10*3/uL (4.8-10.8)
[2022-05-18 20:53] LABS: Appearance Urine Cloudy; Color Urine Dark Yellow; Glucose Urine UA Negative (Negative); Leukocyte Esterase Urine Trace (Negative); Nitrite Urine Positive (Negative); PH 6.5 (5.0-9.0); Specific Gravity - Urine >= 1.030 (1.005-1.025); UMIC TRIGGER UACC YES; Urine Blood Negative (Negative); Urine Ketones Trace mg/dL (Negative); Urine Protein 30 (1+) mg/dL (Neg-Trace)
[2022-05-18 20:54] LABS: MANUAL DIFF FLAG NO
[2022-05-18 21:05] LABS: Bacteria Urine None Seen (None Seen); Hyaline Casts Urine 0-2 /LPF (0-2); RBC Urine 0-2 /HPF (0-2); Squamous Epithelial Cell Urine 0-2 /HPF (0-2); UACC Culture Trigger YES; WBC Urine 0-5 /HPF (0-5)
[2022-05-18] MEDS: cefTRIAXone sodium 1 GM in 0.9 % Sodium Chloride 50 ML IV (22:05)
[2022-05-18 22:34] LABS: Lactic Acid 2.2 mmol/L (0.5-2.0)
[2022-05-18] MEDS: iohexoL 350 MG/ML 100 ML INFUS..BTL IV (23:03)
[2022-05-18 23:49] VITALS: BP 106/72; PULSE 112; RESP 24; TEMP 38.2; O2SAT 99
--- NOTE | 2022-05-18 23:54 | PC.NURSE ---
Reported 100.[address] Gordillo.
[2022-05-19 00:06] LABS: Reflex Lactate? Lactic Acid Added
--- NOTE | 2022-05-19 00:16 | MHC.EDTECH ---
[facility] Transfer [facility] called at [phone] per Asaf Guillen. Spoke with Sylvie gave patient demographics,awaiting a call back at this time.
[2022-05-19] MEDS: 0.9 % Sodium Chloride 1,000 ML 999 ML IV ×2 (00:21→01:56)
[2022-05-19 00:32] VITALS: RESP 27
[2022-05-19] MEDS: Acetaminophen 325 MG TABLET 650 MG PO (00:32)
[2022-05-19] MEDS: ondansetron HCL 4 MG/2 ML VIAL IVPUSH (00:32)
[2022-05-19] MEDS: Morphine Sulfate 4 MG/ML CARTRIDGE IVPUSH (00:32)
--- NOTE | 2022-05-19 00:58 | MHC.EDTECH ---
Return call from [facility] at 0039 spoke with ,awaiting another call back.
[2022-05-19 01:16] LABS: ~Lactic Acid-LAB USE ONLY 1.4 mmol/L (0.5-2.0)
[2022-05-19 01:41] VITALS: BP 105/52; PULSE 115; RESP 22; TEMP 38.2; O2SAT 95
[2022-05-19] MEDS: Ibuprofen 600 MG TABLET PO (01:56)
[2022-05-19] MEDS: Azithromycin 500 MG TABLET PO (02:01)
--- NOTE | 2022-05-19 02:06 | MHC.EDTECH ---
Addendum entered by Sophy Hinton 05/19/22 02:30: [facility] called at 0215 stated they were unable to accommodate an als at this time. was able to downgrade to a bls transfer. Original Note: Received a call back from [facility] at [phone] accepted patient to the ER. [facility] called at [phone] for a stat als transfer per .Rn aware
[2022-05-19 02:20] VITALS: BP 104/64; PULSE 101; RESP 24; TEMP 37.2; O2SAT 95
--- NOTE | 2022-05-19 02:32 | MHC.EDTECH ---
Ems arrived at 0230 for transport,Rn at bedside.
--- NOTE | 2022-05-19 02:36 | PC.NURSE ---
RN attempted to call report to [facility] ED x3 unable to get a hold of emergency department. Pt SANCHEZ x 4. Gave report to EMS. IVF and patient monitor removed from pt. Ems transported pt to [facility] Ed via stretcher.
--- NOTE | 2022-05-19 02:45 | PC.NURSE ---
T/c placed to [facility] ed at 2:41 Rn unable to get a hold of Ed to give nurse to nurse.
--- NOTE | 2022-05-19 02:51 | PC.NURSE ---
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
== END 2022-05-19 03:27 | disposition short-term general hospital (02) ==
PROVIDERS: Nurse Practitioner Family; Emergency Provider Internal Medicine
DX: C85.90 Non-Hodgkin lymphoma, unspecified, unspecified site (principal); J90 Pleural effusion, not elsewhere classified; J18.9 Pneumonia, unspecified organism; R91.8 Other nonspecific abnormal finding of lung field; R06.02 Shortness of breath; R10.32 Left lower quadrant pain; R00.0 Tachycardia, unspecified; J98.59 Other diseases of mediastinum, not elsewhere classified; R63.4 Abnormal weight loss; Z20.822 Contact with and (suspected) exposure to COVID-19; F12.90 Cannabis use, unspecified, uncomplicated; Z87.891 Personal history of nicotine dependence; Z79.899 Other long term (current) drug therapy
CPT/HCPCS: 36415; 71046; 71275; 80053; 81001; 83605; 83690; 85025; 87040; 87086; 87502; 87635; 93005; 96361; 96365; 96366; 96375; 99285; J0696; J2270; J2405; Q9967

== ENCOUNTER → 2024-01-01 14:24 | Outpatient (RCR) | payer MEDICAID, SELFPAY ==
[2020-10-13 09:31] VITALS: BP 116/71; PULSE 100; RESP 14; TEMP 37; O2SAT 99; BMI 16.2
--- NOTE | 2020-10-13 12:37 | P.CNHO_ITS ---
Subjective - Subjective Chief complaint: Cough, mass in chest Patient: new to practice Consult date: 10/13/20 Primary Care Provider: Maria Eugenia Josue MD Medical Summary: Diagnosis: Mediastinal mass/lymphadenopathy September 2020 HPI - Consult Narrative Reason for consult: Mediastinal mass, probable lymphoma Narrative: Aden Lincoln is a 20 year old male who was seen recently in the emergency room with complaints of shortness of breath and cough. He was recommended admission for further workup because of finding of mass in his mediastinum but patient left AMA. He is now accompanied by his mother. They state that he has had these symptoms ongoing since January 2020. In the last few months he has had significant weight loss and loss of appetite. His cough is only productive at nighttime and it is worse when he lies down. He has had no fever or chills. He does report some night sweats. He has no nausea or emesis. He has no difficulty swallowing or dysphonia. He denies any headache or dizziness. Review of Systems - Constitutional Reports as per HPI, Reports no additional constitutional complaints - Cardiovascular Reports no additional cardiovascular complaints - Respiratory Reports no additional respiratory complaints - Gastrointestinal Reports no additional gastrointestinal complaints Oncology Screenings - ECOG Performance Status ECOG Performance Status: 2 [facility] Medical History: Medical History (Last Updated 10/13/20 @ 09:39 by Izabela Ingram) ADD (attention deficit disorder) Anxiety Depression Family History: Family History (Last Updated 10/13/20 @ 09:39 by Izabela Ingram) Maternal Grandfather Colon cancer Maternal Uncle Bone cancer Maternal Aunt Breast cancer Father Stroke Maternal Grandfather Pulmonary emboli Maternal Grandmother HTN (hypertension) Mother COPD (chronic obstructive pulmonary disease) Social History: Social History (Last Updated 10/13/20 @ 09:39 by Izabela Ingram) Alcohol History: Alcohol intake: current Alcohol History Details: Alcohol intake frequency: holiday/special occasion Tobacco History: Patient Tobacco Use Status: Former Tobacco user Years Smoked: 1 Substance Use History: Use of substances other than those prescribed or required for medical reasons : No Substance Use Type: Marijuana Home Medications and Allergies Home Medications Medication Instructions Recorded Confirmed Type clonidine HCl 1 tab PO BEDTIME 10/13/20 10/13/20 History lisdexamfetamine [Vyvanse] 1 cap PO QAM 10/13/20 10/13/20 History Allergies Allergy/AdvReac Type Severity Reaction Status Date / Time No Known Allergies Allergy Unverified 01/13/20 17:22 Physical Exam Vital signs: Vital Signs Temp 98.6 F 10/13/20 09:31 Pulse 100 10/13/20 09:31 Resp 14 10/13/20 09:31 BP 116/71 10/13/20 09:31 Pulse Ox 99 10/13/20 09:31 Intake & Output 10/12/20 10/13/20 10/13/20 18:59 06:59 18:59 Other: Weight 54.1 kg Weight in Grams 99935 Weight 54.1 kg Narrative: Thin built young male, no acute distress. Coughing occasionally. Does not appear dyspneic for. - Constitutional Present: no acute distress - Routine HEENT Exam Head: Present: normal inspection. Absent: facial swelling Eye: Absent: conjunctival injection - Routine Neck Exam Present: supple, lymphadenopathy Comments: Fullness over the right supraclavicular area with prominent veins. - Routine Chest/Breast/Axilla Exam Chest wall: Absent: tenderness - Routine Respiratory Exam Absent: accessory muscle use, respiratory distress, rhonchi - Routine Cardiovascular Exam Cardiovascular: Present: S1, S2, tachycardia - Routine Abdominal Exam Present: normal bowel sounds, soft - Routine Extremities Exam Present: pulses intact - Routine Skin Exam Present: intact. Absent: cyanosis - Routine Neurological Exam Present: alert, oriented X3 Assessment and Plan (1) Mediastinal mass Status: Acute 1. This is a 20-year-old male presenting with large mediastinal mass and symptoms of cough/weight loss which is chronic. CT angiogram of chest in September 2020 showed a large infiltrative mass in the right superior mediastinum measuring 11 x 7.5 x 10.4 cm. Right subclavian artery courses through the mass, right brachiocephalic vein courses through the mass and remains patent. Mass deviates the trachea slightly leftward. Bulky prevascular lymph nodes present which is separate from this mass. 4.1 cm left superior mediastinal lymph node and right contiguous supraclavicular lymphadenopathy is present. Mass effect on right thyroid and right internal jugular vein. Normal thymic tissue inferior to the mediastinal mass. Normal heart size. No intra-abdominal pathology on CT abdomen and pelvis. Blood work revealed normocytic anemia with slightly elevated platelets of 476 K. LDH not elevated, 271. Beta HCG less than 3 and AFP pending. He underwent FNA of left supraclavicular lymph node on 10/11/2020 which was nondiagnostic. Flow cytometry is pending. Differential diagnosis includes lymphoma Hodgkin versus non-Hodgkin lymphoma. Germ cell tumor and Castleman's disease. He is being referred to [facility] for mediastinoscopy and biopsy. Patient and his mother were advised to go to the emergency room immediately if they develops any worsening of his symptoms of cough or shortness of breath. Transport arrangements are being made as they do not have a car. Follow-up in 2 weeks.
== END | disposition home or self-care (01) ==
LOC: HO.ONC 10-13 09:24
PROVIDERS: PCP Pediatrics; Visit Provider Internal Medicine
DX: J98.59 Other diseases of mediastinum, not elsewhere classified (principal); D64.9 Anemia, unspecified
CPT/HCPCS: 99204